=== PATIENT | female | born 1980 | race American Indian/Alaskan Native ===

== ENCOUNTER 2018-05-10 21:05 | Emergency (ER) | payer MEDICAID ==
--- NOTE | 2018-05-10 21:16 | Emergency Department Report ---
ED Chest Pain HPI - General Stated Complaint: CHEST PAIN Time Seen by Provider: 05/10/18 21:12 Source: patient, EMS Mode of arrival: Stretcher Limitations: No Limitations - History of Present Illness Initial Comments: Patient is a 38-year-old female presents emergency room with left-sided chest pain rating on her left arm. Patient states the pain improved with nitroglycerin and aspirin given by EMS. Patient states the chest pain was a 8 out of 10 and radiating to the left upper extremity. He states the pain started approximately 1-2 hours ago. Patient called 911 because she was scared. Patient states that the pain is better with rest and meds. Patient states the pain is worse with exertion. MD Complaint: chest pain -: Sudden Onset: during rest Pain Location: substernal, left chest Severity: severe Severity scale (0 -10): 8 Quality: heaviness, sharp Consistency: constant - Related Data Allergies Allergy/AdvReac Type Severity Reaction Status Date / Time onion Allergy Unknown Verified 05/10/18 21:25 Heart Score - HEART Score History: Slightly suspicious EKG: Normal Age: < 45 Risk factors: No known risk factors Troponin: < normal limit HEART Score: 0 ED Review of Systems ROS: Stated complaint: CHEST PAIN Other details as noted in HPI Constitutional: denies: chills, fever Eyes: denies: eye pain, eye discharge, vision change ENT: denies: ear pain, throat pain Respiratory: denies: cough, shortness of breath, wheezing Cardiovascular: chest pain. denies: palpitations Endocrine: no symptoms reported Gastrointestinal: denies: abdominal pain, nausea, diarrhea Genitourinary: denies: urgency, dysuria, discharge Musculoskeletal: denies: back pain, joint swelling, arthralgia Skin: denies: rash, lesions Neurological: denies: headache, weakness, paresthesias Psychiatric: denies: anxiety, depression Hematological/Lymphatic: denies: easy bleeding, easy bruising ED Past Medical Hx - Past Medical History Previous Medical History?: Yes Hx Asthma: Yes - Surgical History Past Surgical History?: No - Family History Family history: no significant - Social History Smoking Status: Never Smoker Substance Use Type: None ED Physical Exam - General Limitations: No Limitations General appearance: alert, in no apparent distress - Head Head exam: Present: atraumatic, normocephalic - Eye Eye exam: Present: normal appearance - ENT ENT exam: Present: mucous membranes moist - Neck Neck exam: Present: normal inspection - Respiratory Respiratory exam: Present: normal lung sounds bilaterally. Absent: respiratory distress - Cardiovascular Cardiovascular Exam: Present: regular rate, normal rhythm. Absent: systolic murmur, diastolic murmur, rubs, gallop - GI/Abdominal GI/Abdominal exam: Present: soft, normal bowel sounds - Extremities Exam Extremities exam: Present: normal inspection - Back Exam Back exam: Present: normal inspection - Neurological Exam Neurological exam: Present: alert, oriented X3 - Psychiatric Psychiatric exam: Present: normal affect, normal mood - Skin Skin exam: Present: warm, dry, intact, normal color. Absent: rash ED Course Vital Signs 05/10/18 05/10/18 05/10/18 21:18 21:23 22:00 Temperature 98.4 F Pulse Rate 72 70 Respiratory 16 14 Rate Blood Pressure 128/82 Blood Pressure 138/93 [Left] O2 Sat by Pulse 99 100 99 Oximetry 05/10/18 23:00 Temperature Pulse Rate 87 Respiratory 15 Rate Blood Pressure 137/89 Blood Pressure [Left] O2 Sat by Pulse Oximetry - Reevaluation(s) Reevaluation #1: Discussed all results with patient. Discussed plan of care and admission with patient. Patient agrees to admission. Patient will be admitted to the hospitalist for the right with treatment. Patient admitted to rule out ACS due to the fact the patient's pain improved with nitroglycerin 05/10/18 22:38 Reevaluation #2: Patient states she changed her mind about being admitted. Patient decides she wants to leave AMA. Patient signed AMA. Discussed all risks with patient. Patient voiced understanding of risks. Patient advised to follow-up her primary care soon as possible. Patient advised to start a vitamin as soon as possible. Patient advised to to return to ER condition worsens. Patient is leaving the hospital AGAINST MEDICAL ADVICE. Patient signed AMA and nurse witnessed 05/10/18 23:08 - Consultations Consultation #1: Hospitalist consulted for admission. Hospitalist to admit and assume care. full report given to Dr. Portillo 05/10/18 22:40 BAILEE score - Bailee Score Age > 65: (0) No Aspirin use within the Past 7 Days: (0) No 3 or more CAD Risk Factors: (0) No 2 or more Angina events in past 24 hrs: (1) Yes Known CAD with more than 50% Stenosis: (0) No Elevated Cardiac Markers: (0) No ST Deviation Greater than 0.5mm: (0) No BAILEE Score: 1 ED Medical Decision Making - Lab Data Result diagrams: 05/10/18 21:22 05/10/18 21:22 - EKG Data -: EKG Interpreted by Me EKG shows normal: sinus rhythm, axis, intervals, QRS complexes, ST-T waves Rate: normal - Radiology Data Radiology results: image reviewed nad cxr. - Medical Decision Making Patient is a 38-year-old female presents emergency room with complaints of chest pain. Patient's initial cardiac workup was negative. Patient was admitted to the hospital service for further evaluation treatment. Patient was admitted to rule out ACS and other cardiac conditions. - Differential Diagnosis cp. acs. anx. gerd.dehydratio. anemia Critical care attestation.: If time is entered above; I have spent that time in minutes in the direct care of this critically ill patient, excluding procedure time. ED Disposition Clinical Impression: Anemia Qualifiers: Anemia type: unspecified type Qualified Code(s): D64.9 - Anemia, unspecified Chest pain Qualifiers: Chest pain type: unspecified Qualified Code(s): R07.9 - Chest pain, unspecified Disposition: DC-07 LEFT AGAINST MED ADVICE Is pt being admited?: No Does the pt Need Aspirin: No Condition: Undetermined Referrals: PRIMARY CARE, [Primary Care Provider] - 3-5 Days Forms: AMA Form Time of Disposition: 23:09
[2018-05-10 21:47] LABS: Basophils % (Auto) 0.7 % (0.0-1.8); Eosinophils # (Auto) 0.3 K/mm3 (0.0-0.4); Eosinophils % (Auto) 5.4 % (0.0-4.3); Hematocrit 28.9 % (30.3-42.9); Hemoglobin 9.2 gm/dl (10.1-14.3); Lymphocytes % (Auto) 33.1 % (13.4-35.0); Mean Corpuscular HGB Conc 32 % (30-34); Mean Corpuscular Volume 70 fl (79-97); Monocytes # (Auto) 0.6 K/mm3 (0.0-0.8); Monocytes % (Auto) 9.8 % (0.0-7.3); Platelet Count 341 K/mm3 (140-440); Red Blood Count 4.12 M/mm3 (3.65-5.03); Red Cell Distribution Width 18.5 % (13.2-15.2)
[2018-05-10 21:49] LABS: Mean Corpuscular Hemoglobin 22 pg (28-32)
[2018-05-10 22:10] LABS: Alanine Aminotransferase 9 units/L (7-56); Albumin 3.6 g/dL (3.9-5); BUN/Creatinine Ratio 12; Blood Urea Nitrogen 7 mg/dL (7-17); Calcium 8.7 mg/dL (8.4-10.2); Hemolysis Index 4
[2018-05-10 22:11] LABS: Bilirubin,Urine NEG (Negative); Blood,Urine NEG (Negative); Color,Urine Yellow (Yellow); Mucus,Urine FEW /HPF; Protein,Urine <15 mg/dL mg/dL (Negative)
[2018-05-10 22:12] LABS: HCG Qualitative,Urine Negative (Negative)
[2018-05-10 22:22] LABS: Amphetamine Screen,Urine PRESUMPTIVE NEGATIVE; Benzodiazepines Screen,Urine PRESUMPTIVE NEGATIVE; Cannabinoid Screen,Urine PRESUMPTIVE NEGATIVE; Cocaine Screen,Urine PRESUMPTIVE NEGATIVE; Methadone Screen,Urine PRESUMPTIVE NEGATIVE; Opiate Screen,Urine PRESUMPTIVE NEGATIVE
[2018-05-10 23:30] VITALS: BP 137/89
--- NOTE | 2018-05-10 23:56 | XRay Report ---
FINAL REPORT EXAM: XR CHEST 1V AP HISTORY: Chest Pain TECHNIQUE: Frontal portable view of the chest Comparison: None FINDINGS: Visualization detail in the left lung base is limited by artifact. There is no definite evidence of infiltrate and no evidence of pneumothorax or pleural fluid collection. However, a pulmonary infiltrate in the left lateral lung base could be missed due to artifact. The cardiac silhouette is enlarged. The thoracic aorta and bony structures are unremarkable IMPRESSION: 1. No definite evidence of an acute pulmonary process. However, a pulmonary infiltrate in the left lateral lung base could be missed due to artifact. 2. Enlarged cardiac silhouette. PA and lateral views of the chest may be helpful for further evaluation.
== END 2018-05-10 23:31 | disposition left against medical advice (07) ==
LOC: ED 21:05
DX: R07.9 Chest pain, unspecified (principal); D64.9 Anemia, unspecified; J45.909 Unspecified asthma, uncomplicated; Z91.018 Allergy to other foods
CPT/HCPCS: 36415; 71045; 80053; 80307; 81001; 81025; 84484; 85025; 93005; 93010

== ENCOUNTER 2018-05-12 14:00 | Emergency (ER) | payer MEDICAID ==
[2018-05-12] MEDS ORDERED: ASPIRIN PO ONE (16:34)
[2018-05-12 18:23] VITALS: BP 138/93
[2018-05-12 18:45] LABS: BUN/Creatinine Ratio 12; Blood Urea Nitrogen 7 mg/dL (7-17); Hemolysis Index 4
[2018-05-12 18:55] LABS: Basophils % (Auto) 0.5 % (0.0-1.8); Eosinophils # (Auto) 0.3 K/mm3 (0.0-0.4); Eosinophils % (Auto) 4.4 % (0.0-4.3); Hematocrit 29.8 % (30.3-42.9); Hemoglobin 9.9 gm/dl (10.1-14.3); Lymphocytes # (Auto) 1.9 K/mm3 (1.2-5.4); Lymphocytes % (Auto) 29.9 % (13.4-35.0); Mean Corpuscular HGB Conc 33 % (30-34); Monocytes # (Auto) 0.4 K/mm3 (0.0-0.8); Platelet Count 335 K/mm3 (140-440); Red Blood Count 4.33 M/mm3 (3.65-5.03); Red Cell Distribution Width 18.3 % (13.2-15.2)
[2018-05-12 18:56] LABS: Mean Corpuscular Hemoglobin 23 pg (28-32); Mean Corpuscular Volume 69 fl (79-97)
== END 2018-05-12 18:20 | disposition left against medical advice (07) ==
LOC: ED 14:00
DX: R07.89 Other chest pain (principal); Z53.21 Procedure and treatment not carried out due to patient leaving prior to being seen by health care provider
CPT/HCPCS: 36415; 80048; 84484; 85025; 93005; 93010